=== PATIENT | female | born 1980 | race Hispanic/Latino ===

== ENCOUNTER 2018-11-18 13:00 | Outpatient (CLI) | payer BC ==
--- NOTE | 2018-11-18 14:31 | ULT ---
OB ULTRASOUND: 11/18/18 HISTORY: anatomy. A single live intrauterine gestation is seen with measurements corresponding to an estimated gestatio nal age of 19 weeks, 5 days and REBECCA at 04/09/19. The estimated weight measures 310 grams or 11 oz (24th percentile by Hadlock criteria). measurements are as follows: BPD 4.48 cm 19 weeks, 4 days HC 17.27 cm 19 weeks, 6 days AC 14.24 cm 19 weeks, 4 days FL 3.18 cm 19 weeks, 6 days heart rate measures 155 beats per minute. EAGLE measures 9.7 cm. Placenta is low lying and head operator ior without evidence of placenta previa. Cervical length measures 4 cm. A three vessel cord, cord insertion, kidneys, bladder, stomach, four chambered heart, lateral v entricles, cerebellum, spine, lips/nose, upper and lower extremities are visualized. No definite feca l anomalies are seen. IMPRESSION: Single live IUP of 19 weeks, 5 days estimated gestational age and REBECCA at 04/09/19. POS: DIANA
== END 2018-11-18 13:01 | disposition home or self-care (01) ==
LOC: SCSULT 13:00
PROVIDERS: ATTEND Midwife
DX: Z36.89 Encounter for other specified antenatal screening (principal); Z3A.19 19 weeks gestation of pregnancy
CPT/HCPCS: 76805

== ENCOUNTER 2019-04-07 04:16 | Observation (INO) | payer BC ==
[2019-04-07] MEDS ORDERED: NS / Oxytocin 40 units/1000ml 1,000 ML ONE (04:31)
[2019-04-07] MEDS ORDERED: Morphine 10 MG/ML VIAL ONE (04:42)
[2019-04-07] MEDS ORDERED: Meperidine HCl/PF 25 MG/ML VIAL ONE (04:42)
[2019-04-07] MEDS ORDERED: Promethazine HCl 25 MG/ML VIAL IM SCH (05:00)
[2019-04-07 05:29] LABS: #Lymphocytes 1.6 thou/uL (1.20-3.40); #Monocytes 0.7 thou/uL (0.11-0.59); #Neutrophils 15.7 thou/uL (1.40-6.50); %Basophils 0.2 % (0.0-1.0); %Eosinophils 0.2 % (0.0-10.0); %Lymphocytes 8.8 % (21.0-51.0); %Neutrophils 86.9 % (42.0-75.0); Hemoglobin 10.2 g/dL (12.0-16.0); Mean Corpuscular HGB CONC 34.2 g/dL (32.0-36.0); Mean Corpuscular Hemoglobin 28.7 pg (27.0-31.0); Mean Corpuscular Volume 84.1 fL (78.0-98.0); Mean Platelet Volume 8.7 fL (7.4-10.4); Platelet Count 185 thou/uL (130-400); Red Blood Cell (RBC) Count 3.54 mill/uL (4.20-5.40); White Blood Cell (WBC) Count 18.1 thou/uL (4.8-10.8)
[2019-04-07 05:32] LABS: Prothrombin Time 13.2 SEC (12.0-14.7)
[2019-04-07] MEDS ORDERED: Ondansetron PF 4 MG/2 ML Vial IVP PRN (05:33)
[2019-04-07] MEDS ORDERED: hydrALAZINE 20 MG/ML VIAL SLOW IVP PRN (05:33)
[2019-04-07] MEDS ORDERED: Sodium Chloride 0.9% 1,000 ML IV SCH (05:45)
[2019-04-07] MEDS ORDERED: Lactated Ringer's 1,000 ML IV SCH (05:45)
[2019-04-07] MEDS ORDERED: CEFAZOLIN 2 GM in Premix Bag 1 BAG IVPB SCH (05:45)
[2019-04-07] MEDS ORDERED: NS / Oxytocin 40 units/1000ml 1,000 ML IV SCH (05:45)
[2019-04-07 06:12] VITALS: BMI 27.9
--- NOTE | 2019-04-07 10:29 | HP ---
PRIMARY CARE CENTER MANAGER: Ms. Aleksey Jaquez. CHIEF COMPLAINT: bleeding. HISTORY OF PRESENT ILLNESS: The patient is a 38-year-old multiparous female, status post a term spontaneous vaginal delivery about 1 o'clock this morning, presenting to Labor and Delivery with concerns of bleeding. It was reported to me that she has had about an estimated blood loss of about 800 mL there at the birthing center. Because of her persistent bleeding and the amount of bleeding that she had, there was concerns that something required further evaluation and came here. It is reported that she had a small about 2 cm laceration that was not bleeding at the time of the last evaluation. The patient denies any lightheadedness, headache, chest pain, shortness of breath, nausea, vomiting. She has had diarrhea associated with labor. No constipation. No new rashes. The patient does report a history of bleeding with previous pregnancies but not to the extent that this one has been. In previous pregnancies, just Pitocin has been enough to get the bleeding to stop. PAST MEDICAL HISTORY: Negative. PAST SURGICAL HISTORY: Negative. ALLERGIES: KEFLEX, WHICH IS A RASH AFTER GETTING IT DURING A HIKING TRIP, DID NOT CAUSE ANY DISRUPTION IN HER DAY-TO-DAY ACTIVITIES, AND SULFA. MEDICATIONS: The patient has received 20 milliunits of Pitocin total prior to her arrival. SOCIAL HISTORY: Denies drug, alcohol, tobacco use. PHYSICAL EXAMINATION: VITAL SIGNS: On arrival, blood pressure 106/73, heart rate of 160, saturating 99% on room air. Current blood pressure 113/76, heart rate of 110, saturating 100% on room air. GENERAL: The patient appears to be alert, oriented, cooperative, and pleasant to interact with. She does have a paler complexion than expected, has no capillary refill. Hands are cool. Lips are again pale. GENITALIA: A second IV was placed and fluid was bolused during the evaluation. The patient was given 75 mg of Demerol IV prior to a complete evaluation. Upon initial evaluation, what was noted initially was a second-degree perineal laceration and repaired and it was not bleeding. Exposure of the cervix was made with some discomfort to the patient. A bimanual exam was performed and noted to have a significant amount of clot present in the lower uterine segment, which was evacuated. The patient tolerated it, but asked for us to stop. At that point, 75 mg of Demerol was given to finish the evaluation. Bimanual exam was repeated and further clot was removed and digital evaluation of the uterine cavity was made looking for any placental fragments or membranes, which was not palpable. Cervix was visualized, did not appear to have any cervical laceration. There were no vaginal lacerations that were unobserved other than the second-degree perineal laceration. At this point, the perineal laceration was repaired by placing about 10 mL of 1% lidocaine into the laceration and repaired with 2-0 chromic in the usual fashion. Upon completion of the laceration repair, the patient continued to have very little bleeding even with fundal massage. She had some minimal bleeding that was dark. Fundus continued to be firm. At this point, rest the evaluation and assessment was performed. LUNGS: Clear. HEART: Had a regular rate and rhythm. ABDOMEN: Otherwise soft. EXTREMITIES: Again the patient had no capillary refill. Pulse by this time after receiving a total of 2 L of fluid or a liter and a half of fluid had come down to the one teens to 120s. LABORATORY DATA: Blood count: CBC on arrival was 10.2, hematocrit 29.8, and platelets of 185,000. Coagulation study: INR was 1.0, PT of 13.2, PTT of 24. Quantitative blood loss here is about a 1000 mL. ASSESSMENT AND PLAN: The patient is a 38-year-old female, who delivered at [facility], presenting with bleeding. We have estimated between what we have weighed here and what they have estimated blood loss there is about 2 L of blood loss. Her clinical picture does show significant acute blood loss given absence of capillary refill, tachycardia. However, blood pressures have remained stable. We have given her a total of 2 L of fluid, starting a third liter of normal saline. Her pulse has responded well to the fluid resuscitation. In about 5 hours, we will be repeating her CBC and re-evaluate for signs of severe anemia. The patient at this time in bed does not have any symptomatology that is concerning. I have recommended a minimum of 5 hours to stay here for observation. She has received 2 g of Ancef IV for prophylaxis given the extensive uterine bimanual manipulation. The patient has also been counseled to signs and symptoms of infection. I have recommended that she stay until the morning at which time we can repeat her CBC in the morning and see more accurately where her hemoglobin and hematocrit lie. I am not concerned at this time for any more significant bleeding. However, this can be evaluated as the day goes on. Dr. Lam will be the oncoming physician, who will be giving final disposition. Job ID: [id number]
--- NOTE | 2019-04-07 10:29 | PRG ---
DATE OF SERVICE: 04/07/2019 LABOR AND DELIVERY FOLLOWUP: In brief, I just received checkout from Dr. Chaudhari regarding this patient who he saw before change of shift. In brief, this is a patient who was transferred from the [facility] for suspected hemorrhage of about 800-1000 mL blood loss there, although that is not adequately documented at that location. Here in Labor and Delivery, she had about a 1000 mL blood clot and bleeding that was evaluated and bleeding has since stopped. So, we are anywhere from 3199-8214 mL blood loss, but is unsure what the blood loss actually was because it was not accurately captured at the [facility]. Her hematocrit at 4 o'clock in the morning was 29.8, and there was another hematocrit pending for 10:30. Currently, I have not yet seen the patient since I just received check out about 5 minutes ago and I am at another hospital location clinical education manager to the OR for an unrelated issue. I have talked to the patient's nurse and find the patient to be doing well, with an O2 saturation of 99%, pulse is in the high 90s, and blood pressure is stable. I have discussed with the nurse my concern of needing blood and I have just put in 2 units for type and cross to have that on standby. Her blood type is A positive. My plan is to get a repeat hematocrit at 10:30 in the morning. The patient is requesting to go home. Although I have not yet evaluated her due to my commitments with other patient care. We will evaluate after that followup hematocrit, although I do suspect she may need blood products. Job ID: [id number]
--- NOTE | 2019-04-07 10:35 | PDOC.EVN ---
Event Note - Event Note Event Note: At bedside now. Pulse 112 BP 103/71 Alert, good cap refill. NAD No active VB reported. TXA not given prior, but will give now
[2019-04-07 10:40] LABS: Mean Corpuscular HGB CONC 34.9 g/dL (32.0-36.0); Mean Corpuscular Hemoglobin 29.3 pg (27.0-31.0); Mean Corpuscular Volume 84.1 fL (78.0-98.0); Mean Platelet Volume 8.8 fL (7.4-10.4); Platelet Count 155 thou/uL (130-400); RBC Distribution Width 11.9 % (11.5-14.5); Red Blood Cell (RBC) Count 2.73 mill/uL (4.20-5.40); White Blood Cell (WBC) Count 15.1 thou/uL (4.8-10.8)
--- NOTE | 2019-04-07 10:41 | PDOC.EVN ---
Event Note - Event Note Event Note: At Bedside now History reviewed. Pending repeat Pulse 112 BP 103/71 Normal cap refill and patient in NAD EBL reviewed with her. Did not recieve TXA...will give now.
[2019-04-07] MEDS ORDERED: Tranexamic Acid 1,000 MG in Sodium Chloride 0.9% 250 ML 250 ML IVPB SCH (10:45)
--- NOTE | 2019-04-07 12:51 | PDOC.EVN ---
Event Note - Event Note Event Note: Lab check: HCT 23
--- NOTE | 2019-04-07 13:46 | PRG ---
DATE OF SERVICE: 04/07/2019 TIME OF EVALUATION: 1315 hours. LOCATION: Labor and Delivery in bed 5. In brief, this patient was seen at bedside and the hematocrit value from 1030 hours was reviewed with her. The hematocrit value was now 23, down from 29 at about 4 in the morning. Clinically, she looks well and her pulse remains about 100 to 110. I discussed prophylactic transfusion with her versus continued observation as we do not know how much bleeding she had at the outside location before she arrived here. She has elected to stay for observation and we will get another H and H value at 1700 hours today to evaluate her need for transfusion. We did again talk about the potential risks and benefits of transfusion, but as we are just not sure of the total amount of blood loss (likely greater than 1500), we will just observe for now even though she is at high risk and high propensity to get blood products. Again, I have already typed and crossed her, but we will do conservative management for now. Job ID: [id number]
[2019-04-07 17:33] LABS: Hemoglobin 7.3 g/dL (12.0-16.0)
--- NOTE | 2019-04-07 18:47 | PDOC.EVN ---
Event Note - Event Note Event Note: Lab check: HCT 21
[2019-04-07] MEDS ORDERED: diphenhydrAMINE 25 MG CAP PO PRN (18:57)
[2019-04-07] MEDS ORDERED: Acetaminophen 500 MG TAB PO SCH (19:00)
--- NOTE | 2019-04-07 19:00 | PDOC.EVN ---
Event Note - Event Note Event Note: PRE-TRANSFUSION NOTE At bedside now, HCT of 21 reviewed. Predelivery HCT was 37 per functional tester records. Due to EBL of 1800-2000ml total (1000ml here and about 800ml there), and persistent pulse of 110s, we will transfuse 1 unit now. Risks and benefits discussed with the pateint and her ( on phone) . She also has a HX of PPH with prior deliveries...info given. 1 unit PRBCs ordered. Likely home in AM
--- NOTE | 2019-04-07 20:13 | PDOC.EVN ---
Event Note - Event Note Event Note: awaiting blood for Xfusion. Patient to PP floor
[2019-04-08 06:28] LABS: Hemoglobin 7.7 g/dL (12.0-16.0)
--- NOTE | 2019-04-08 07:29 | DIS ---
DATE OF ADMISSION: 04/07/2019 DATE OF DISCHARGE: 04/08/2019 PRINCIPAL DIAGNOSES: 1. admission. 2. hemorrhage at outside location. 3. Severe acute anemia from blood loss at delivery. 4. Anemia, present on admission with hematocrit value under 30. 5. One unit packed red blood cell transfusion this hospitalization. HOSPITAL COURSE: In brief, this patient was admitted by Dr. Chaudhari, who was semiconductor testing group leader on 04/07/2019. The patient was delivered at an outside facility ([facility]) and was transferred here around four in the morning for significant bleeding at that location. By their estimate, it was about 800 mL of blood. When she arrived here, according to Dr. Chaudhari, she had about 1000 mL of blood and clot expressed. She was given IV fluids and observation. When I assumed a call on 04/07/2019 in the morning, I ordered tranexamic acid for her (TXA). We also did serial hematocrit values anticipating the need for blood due to the blood loss volume. Her hematocrit value fell from 29, to 23, to 21, and at that point, due to persistent tachycardia with pulse over 100, the plan was to give her 1 unit of blood. The unit of blood was given on the evening of April 07. I evaluated the patient at bedside on 04/08/2019, and found her to be feeling much better. She states that her dizziness and fatigue is resolving. Her pulse on vital sign review is now under 100 and she is afebrile. There is no vaginal bleeding at this time. I did order a followup H and H for this morning that is still pending. The patient is also requested to go home as she was not expected to stay this long. I have discussed with her signs and symptoms of anemia and that she feels clinically better with a pulse under 100, and that she has received 1 unit of blood, I feel better about sending her home. She will follow up with her nurse christmas tree contractor in about a week for followup. I did recommend that she can take her vitamins at home every other day to help her with her iron support. Job ID: [id number]
--- NOTE | 2019-04-08 08:05 | PDOC.EVN ---
Event Note - Event Note Event Note: HCT this AM post transfusion was 22...possibly stable
[2019-04-08 08:20] VITALS: BP 89/51; TEMP 98.2
== END 2019-04-08 08:45 | disposition home or self-care (01) ==
LOC: L&D/OP 04:16 → L&D 05:41 → 3SW 20:40
PROVIDERS: ADMIT Obstetrics & Gynecology; ATTEND Obstetrics & Gynecology
PROC: 30233N1 Transfusion of Nonautologous Red Blood Cells into Peripheral Vein, Percutaneous Approach (ICD-10-PCS; principal; 2019-04-08)
DX: O72.2 Delayed and secondary postpartum hemorrhage (principal); O90.81 Anemia of the puerperium; D62 Acute posthemorrhagic anemia; Z88.1 Allergy status to other antibiotic agents; Z88.2 Allergy status to sulfonamides
CPT/HCPCS: 36415; 36430; 85014; 85018; 85025; 85610; 85730; 86850; 86900; 86901; G0378; J0690; J2175; J2270; P9016